=== PATIENT | male | born 1995 | race Caucasian/White ===

== ENCOUNTER 2020-12-22 04:03 | Emergency (ER) | payer OTHER ==
[~2020-12-22] VITALS: Ht 183 cm; Wt 59.0 kg
[2020-12-22] MEDS ORDERED: VENL75CA93 (04:15)
[2020-12-22] MEDS ORDERED: MIRT15TA6 (04:15)
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
[2020-12-22] MEDS ORDERED: NS 100 ML (IVPB) BAG IV ONE (04:45)
[2020-12-22] MEDS ORDERED: HOLD METFORMIN - RECEIVED CONTRAST 20 ML VIAL IV SCH (04:45)
[2020-12-22] MEDS ORDERED: CATHETER FLUSH 10 ML SYR IV PRN (04:45)
[2020-12-22] MEDS ORDERED: IOHEXOL 350 MG/ML 100 ML (OMNIPAQUE 350) VIAL IV ONE (04:45)
[2020-12-22 05:39] VITALS: BP 126/76
--- NOTE | 2020-12-22 06:07 | Diagnostic Imaging Report ---
PROCEDURE: CT angiography of the chest with contrast. TECHNIQUE: Multiple contiguous axial images were obtained through the chest after uneventful bolus administration of intravenous contrast. 3D reconstructed CTA MIP acquisitions were also performed. Auto Exposure Controls were utilized during the CT exam to meet ALARA standards for radiation dose reduction. INDICATION: Chest pain There is good opacification of pulmonary arteries without intraluminal filling defect. The thoracic aorta is also opacified without evidence of dissection, however, there is aneurysmal dilatation of the ascending thoracic aorta reaching approximately 4.5 cm in maximal diameter. Normal three-vessel branching pattern arising from the aortic arch. Descending thoracic aorta is unremarkable. Lungs appear clear. There is no significant pleural or pericardial fluid. No pathologic adenopathy is seen in the chest. IMPRESSION: There is no CTA evidence of pulmonary embolism. Ascending thoracic aortic aneurysm reaches 4.5 cm in diameter without other evidence of acute abnormality pneumothorax. Dictated by: Dictated on workstation # [id number]
== END 2020-12-22 05:42 ==
LOC: ER 04:06
DX: R07.89 Other chest pain (principal); Z86.79 Personal history of other diseases of the circulatory system; Y04.0XXA Assault by unarmed brawl or fight, initial encounter
CPT/HCPCS: 71275